=== PATIENT | male | born 1970 | race Caucasian/White ===

== ENCOUNTER 2020-12-08 14:17 | Inpatient (IN) | payer OTHER ==
[~2020-12-08] VITALS: Ht 175.3 cm; Wt 68.0 kg
[2020-12-08 23:00] VITALS: BP 136/77
[2020-12-08] MEDS ORDERED: ACETAMINOPHEN 325 MG TABLET PO PRN (23:30)
[2020-12-08] MEDS ORDERED: DEXTROSE 50%-WATER 25 GM/50 ML SYRINGE IVP PRN (23:30)
[2020-12-09] MEDS ORDERED: PNEUMOCOCCAL VACCINE POLYVALENT 0.5 ML VIAL [PPSV23] IM. ONE (04:45)
[2020-12-09 05:55] LABS: GLUCOMETER DEV NAME(LOC) 2WR.2B; GLUCOSE,POINT OF CARE 177 MG/DL (70-110)
[2020-12-09 06:59] LABS: BASOPHILS % (AUTO) 0.4 % (0.0-2.0); EOSINOPHILS % (AUTO) 1.9 % (1.0-6.0); HEMATOCRIT 45.7 % (41-53); HEMOGLOBIN 15.4 g/dL (13.5-17.5); LYMPHOCYTES # (AUTO) 1.3 K/uL (1.0-4.8); LYMPHOCYTES % (AUTO) 17.5 % (22.0-44.0); MEAN CORPUSCULAR HEMOGLOBIN 30.2 pg (26.0-34.0); MEAN CORPUSCULAR HGB CONC 33.8 G/dL (31.0-37.0); MEAN CORPUSCULAR VOLUME 89 fL (80-100); MONOCYTES # (AUTO) 0.5 K/uL (0.1-1.0); NEUTROPHILS # (AUTO) 5.6 K/uL (1.8-7.7); NEUTROPHILS % (AUTO) 73.2 % (40.0-70.0); PLATELET COUNT (AUTO) 255 K/uL (150-450); RED BLOOD CELL COUNT(AUTO) 5.12 MIL/uL (4.50-5.90); RED CELL DISTRIBUTION WIDTH 13.9 % (11.5-14.5)
[2020-12-09 07:17] LABS: ALANINE AMINOTRANSFERASE 53 U/L (12-78); ALBUMIN 3.1 g/dL (3.4-5.0); ALKALINE PHOSPHATASE 123 U/L (46-116); ANION GAP 8 mmol/L (8-16); ASPARTATE AMINOTRANSFERASE 19 U/L (15-37); BILIRUBIN,TOTAL 0.6 mg/dL (0.1-1.0); CALCIUM, TOTAL 9.1 mg/dL (8.8-10.5); CARBON DIOXIDE 28 mmol/L (22-29); CHLORIDE 104 mmol/L (98-107); CREATININE 0.68 mg/dL (0.60-1.30); GLOMERULAR FILTR. RATE CALC > 60 mL/min (>60); GLUCOSE,RANDOM 179 mg/dL (70-110); POTASSIUM 4.2 mmol/L (3.5-5.1); SODIUM SERUM 140 mmol/L (136-145); TOTAL PROTEIN, SERUM 6.6 g/dL (6.4-8.2); UREA NITROGEN, BLOOD 9 mg/dL (7-18)
[2020-12-09] MEDS: INSULIN LISPRO 100 UNITS/ML SQ SCH ×3 (08:02→18:00)
[2020-12-09] MEDS: INSULIN LISPRO 100 UNITS/ML SQ PRN ×3 (08:03→18:00)
[2020-12-09] MEDS: ETHYL ALCOHOL 62% ANTISEPTIC NASAL INHALANT 0.6 ML AMPUL NASAL SCH ×2 (08:05→20:42)
[2020-12-09] MEDS: DOCUSATE SODIUM 100 MG CAPSULE PO SCH ×2 (08:05→20:42)
[2020-12-09] MEDS: ASPIRIN 81 MG CHEWABLE TABLET PO SCH (08:05)
[2020-12-09] MEDS: CLOPIDOGREL BISULFATE 75 MG TABLET PO SCH (08:05)
[2020-12-09] MEDS: ENOXAPARIN SODIUM 40 MG/0.4 ML PF SYRINGE SQ SCH (08:06)
[2020-12-09 09:43] VITALS: BP 133/75
[2020-12-09 13:47] LABS: GLUCOMETER DEV NAME(LOC) 2WR.1C; GLUCOSE,POINT OF CARE 149 MG/DL (70-110)
[2020-12-09 15:59] VITALS: BP 127/56
[2020-12-09 19:32] LABS: GLUCOMETER DEV NAME(LOC) 2WR.2B; GLUCOSE,POINT OF CARE 194 MG/DL (70-110)
[2020-12-09] MEDS: ATORVASTATIN CALCIUM 40 MG TABLET PO SCH (20:42)
[2020-12-09] MEDS: SENNA 187 MG TABLET PO SCH (20:42)
[2020-12-09] MEDS: INSULIN GLARGINE,HUM.REC.ANLOG 100 UNITS/ML SQ SCH (20:53)
[2020-12-09 21:50] LABS: GLUCOMETER DEV NAME(LOC) 2WR.2B; GLUCOSE,POINT OF CARE 128 MG/DL (70-110)
[2020-12-10 01:20] VITALS: BP 138/98
[2020-12-10] MEDS: ASPIRIN 81 MG CHEWABLE TABLET PO SCH (07:33)
[2020-12-10] MEDS: ENOXAPARIN SODIUM 40 MG/0.4 ML PF SYRINGE SQ SCH (07:33)
[2020-12-10] MEDS: DOCUSATE SODIUM 100 MG CAPSULE PO SCH ×2 (07:33→21:23)
[2020-12-10] MEDS: INSULIN LISPRO 100 UNITS/ML SQ SCH ×3 (07:35→17:59)
[2020-12-10] MEDS: ETHYL ALCOHOL 62% ANTISEPTIC NASAL INHALANT 0.6 ML AMPUL NASAL SCH ×2 (08:05→21:22)
[2020-12-10] MEDS: CLOPIDOGREL BISULFATE 75 MG TABLET PO SCH (08:06)
[2020-12-10 09:00] VITALS: BP 131/83
[2020-12-10] MEDS: INSULIN LISPRO 100 UNITS/ML SQ PRN (12:27)
[2020-12-10 15:25] VITALS: BP 137/81
[2020-12-10] MEDS: TAMSULOSIN HCL 0.4 MG CAPSULE PO SCH (16:35)
[2020-12-10] MEDS: MetFORMIN HCL 500 MG TABLET PO SCH (16:35)
[2020-12-10 16:37] LABS: GLUCOMETER DEV NAME(LOC) 2WR.2B; GLUCOSE,POINT OF CARE 141 MG/DL (70-110)
[2020-12-10 19:57] LABS: GLUCOMETER DEV NAME(LOC) 2WR.2B; GLUCOSE,POINT OF CARE 96 MG/DL (70-110)
[2020-12-10] MEDS ORDERED: TAMSULOSIN HCL 0.4 MG CAPSULE PO SCH (21:00)
[2020-12-10 21:19] LABS: GLUCOMETER DEV NAME(LOC) 2WR.1C; GLUCOSE,POINT OF CARE 175 MG/DL (70-110)
[2020-12-10] MEDS: ATORVASTATIN CALCIUM 40 MG TABLET PO SCH (21:23)
[2020-12-10] MEDS: SENNA 187 MG TABLET PO SCH (21:23)
[2020-12-10] MEDS: INSULIN GLARGINE,HUM.REC.ANLOG 100 UNITS/ML SQ SCH (21:31)
[2020-12-10 23:23] VITALS: BP 143/88
[2020-12-11 03:10] LABS: GLUCOMETER DEV NAME(LOC) 2WR.2B; GLUCOSE,POINT OF CARE 132 MG/DL (70-110)
[2020-12-11 05:45] LABS: GLUCOMETER DEV NAME(LOC) 2WR.1C; GLUCOSE,POINT OF CARE 163 MG/DL (70-110)
[2020-12-11] MEDS: CLOPIDOGREL BISULFATE 75 MG TABLET PO SCH (08:08)
[2020-12-11] MEDS: ASPIRIN 81 MG CHEWABLE TABLET PO SCH (08:09)
[2020-12-11] MEDS: ETHYL ALCOHOL 62% ANTISEPTIC NASAL INHALANT 0.6 ML AMPUL NASAL SCH ×2 (08:09→20:52)
[2020-12-11] MEDS: ENOXAPARIN SODIUM 40 MG/0.4 ML PF SYRINGE SQ SCH (08:10)
[2020-12-11] MEDS: TAMSULOSIN HCL 0.4 MG CAPSULE PO SCH (08:10)
[2020-12-11] MEDS: MetFORMIN HCL 500 MG TABLET PO SCH ×2 (08:12→18:11)
[2020-12-11] MEDS: MUPIROCIN CALCIUM 2% 22 GM OINTMENT NASAL SCH ×2 (08:13→20:53)
[2020-12-11] MEDS: INSULIN LISPRO 100 UNITS/ML SQ SCH ×3 (08:16→17:37)
[2020-12-11] MEDS: INSULIN LISPRO 100 UNITS/ML SQ PRN ×2 (08:17→20:59)
[2020-12-11] MEDS: DOCUSATE SODIUM 100 MG CAPSULE PO SCH (08:23)
[2020-12-11 09:00] VITALS: BP 124/78
[2020-12-11] MEDS ORDERED: ETHYL ALCOHOL 62% ANTISEPTIC NASAL INHALANT 0.6 ML AMPUL NASAL SCH (09:00)
[2020-12-11 12:33] LABS: GLUCOMETER DEV NAME(LOC) 2WR.2B; GLUCOSE,POINT OF CARE 111 MG/DL (70-110)
[2020-12-11 15:55] VITALS: BP 135/88
[2020-12-11 17:16] LABS: GLUCOMETER DEV NAME(LOC) 2WR.1C; GLUCOSE,POINT OF CARE 114 MG/DL (70-110)
[2020-12-11] MEDS: ATORVASTATIN CALCIUM 40 MG TABLET PO SCH (20:51)
[2020-12-11] MEDS: SENNA 187 MG TABLET PO SCH (20:52)
[2020-12-11] MEDS: DOCUSATE SODIUM 250 MG CAPSULE PO SCH (20:52)
[2020-12-11] MEDS: INSULIN GLARGINE,HUM.REC.ANLOG 100 UNITS/ML SQ SCH (20:54)
[2020-12-11 22:37] LABS: GLUCOMETER DEV NAME(LOC) 2WR.1C; GLUCOSE,POINT OF CARE 191 MG/DL (70-110)
[2020-12-11 23:53] VITALS: BP 123/60
[2020-12-12 05:56] LABS: GLUCOMETER DEV NAME(LOC) 2WR.2B; GLUCOSE,POINT OF CARE 172 MG/DL (70-110)
[2020-12-12] MEDS: INSULIN LISPRO 100 UNITS/ML SQ SCH ×3 (07:57→17:54)
[2020-12-12] MEDS: INSULIN LISPRO 100 UNITS/ML SQ PRN (07:58)
[2020-12-12] MEDS: ETHYL ALCOHOL 62% ANTISEPTIC NASAL INHALANT 0.6 ML AMPUL NASAL SCH ×2 (08:00→21:12)
[2020-12-12] MEDS: DOCUSATE SODIUM 250 MG CAPSULE PO SCH ×2 (08:00→21:12)
[2020-12-12] MEDS: TAMSULOSIN HCL 0.4 MG CAPSULE PO SCH (08:00)
[2020-12-12] MEDS: MetFORMIN HCL 500 MG TABLET PO SCH ×2 (08:01→17:53)
[2020-12-12] MEDS: ASPIRIN 81 MG CHEWABLE TABLET PO SCH (08:01)
[2020-12-12] MEDS: CLOPIDOGREL BISULFATE 75 MG TABLET PO SCH (08:02)
[2020-12-12] MEDS: ENOXAPARIN SODIUM 40 MG/0.4 ML PF SYRINGE SQ SCH (08:04)
[2020-12-12] MEDS: MUPIROCIN CALCIUM 2% 22 GM OINTMENT NASAL SCH ×2 (08:07→21:17)
[2020-12-12 09:00] VITALS: BP 128/74
[2020-12-12 16:17] LABS: GLUCOMETER DEV NAME(LOC) 2WR.1C; GLUCOSE,POINT OF CARE 123 MG/DL (70-110)
[2020-12-12 17:54] LABS: GLUCOMETER DEV NAME(LOC) 2WR.1C; GLUCOSE,POINT OF CARE 126 MG/DL (70-110)
[2020-12-12] MEDS: ATORVASTATIN CALCIUM 40 MG TABLET PO SCH (21:12)
[2020-12-12] MEDS: SENNA 187 MG TABLET PO SCH (21:12)
[2020-12-12] MEDS: INSULIN GLARGINE,HUM.REC.ANLOG 100 UNITS/ML SQ SCH (21:14)
[2020-12-12 21:49] LABS: GLUCOMETER DEV NAME(LOC) 2WR.2B; GLUCOSE,POINT OF CARE 105 MG/DL (70-110)
[2020-12-13 02:33] VITALS: BP 133/85
[2020-12-13] MEDS ORDERED: ATOR40TA28 PO (03:37)
[2020-12-13] MEDS ORDERED: METF-960 PO (03:37)
[2020-12-13] MEDS ORDERED: TAMS-13 PO (03:37)
[2020-12-13] MEDS ORDERED: INSU100V SQ (03:37)
[2020-12-13] MEDS ORDERED: ASPI-1450 PO (03:37)
[2020-12-13] MEDS ORDERED: CLOP75TA60 PO (03:37)
[2020-12-13] MEDS ORDERED: INSLAN SQ (03:37)
[2020-12-13 05:54] LABS: GLUCOMETER DEV NAME(LOC) 2WR.2B; GLUCOSE,POINT OF CARE 152 MG/DL (70-110)
[2020-12-13 08:00] VITALS: BP 124/77
[2020-12-13] MEDS: INSULIN LISPRO 100 UNITS/ML SQ SCH ×3 (08:01→17:48)
[2020-12-13] MEDS: MetFORMIN HCL 500 MG TABLET PO SCH ×2 (08:02→17:46)
[2020-12-13] MEDS: ASPIRIN 81 MG CHEWABLE TABLET PO SCH (08:02)
[2020-12-13] MEDS: DOCUSATE SODIUM 250 MG CAPSULE PO SCH ×2 (08:02→20:26)
[2020-12-13] MEDS: ENOXAPARIN SODIUM 40 MG/0.4 ML PF SYRINGE SQ SCH (08:03)
[2020-12-13] MEDS: ETHYL ALCOHOL 62% ANTISEPTIC NASAL INHALANT 0.6 ML AMPUL NASAL SCH ×2 (08:03→20:26)
[2020-12-13] MEDS: MUPIROCIN CALCIUM 2% 22 GM OINTMENT NASAL SCH ×2 (08:03→20:25)
[2020-12-13] MEDS: CLOPIDOGREL BISULFATE 75 MG TABLET PO SCH (08:03)
[2020-12-13] MEDS: TAMSULOSIN HCL 0.4 MG CAPSULE PO SCH (08:03)
[2020-12-13 12:56] LABS: GLUCOMETER DEV NAME(LOC) 2WR.1C; GLUCOSE,POINT OF CARE 105 MG/DL (70-110)
[2020-12-13 16:07] VITALS: BP 128/79
[2020-12-13] MEDS: SENNA 187 MG TABLET PO SCH (20:26)
[2020-12-13] MEDS: ATORVASTATIN CALCIUM 40 MG TABLET PO SCH (20:26)
[2020-12-13] MEDS: INSULIN LISPRO 100 UNITS/ML SQ PRN (20:34)
[2020-12-13] MEDS: INSULIN GLARGINE,HUM.REC.ANLOG 100 UNITS/ML SQ SCH (20:35)
[2020-12-13 23:52] VITALS: BP 131/71
[2020-12-14 05:21] LABS: GLUCOMETER DEV NAME(LOC) 2WR.1C; GLUCOSE,POINT OF CARE 108 MG/DL (70-110)
[2020-12-14 05:21] LABS: GLUCOMETER DEV NAME(LOC) 2WR.1C; GLUCOSE,POINT OF CARE 150 MG/DL (70-110)
[2020-12-14 06:06] LABS: GLUCOMETER DEV NAME(LOC) 2WR.2B; GLUCOSE,POINT OF CARE 159 MG/DL (70-110)
[2020-12-14] MEDS: MetFORMIN HCL 500 MG TABLET PO SCH ×2 (07:47→17:32)
[2020-12-14] MEDS: INSULIN LISPRO 100 UNITS/ML SQ SCH ×3 (07:50→17:30)
[2020-12-14] MEDS: INSULIN LISPRO 100 UNITS/ML SQ PRN (07:51)
[2020-12-14] MEDS: ETHYL ALCOHOL 62% ANTISEPTIC NASAL INHALANT 0.6 ML AMPUL NASAL SCH ×2 (07:52→20:33)
[2020-12-14] MEDS: TAMSULOSIN HCL 0.4 MG CAPSULE PO SCH (07:52)
[2020-12-14] MEDS: CLOPIDOGREL BISULFATE 75 MG TABLET PO SCH (07:52)
[2020-12-14] MEDS: ASPIRIN 81 MG CHEWABLE TABLET PO SCH (07:52)
[2020-12-14] MEDS: ENOXAPARIN SODIUM 40 MG/0.4 ML PF SYRINGE SQ SCH (07:53)
[2020-12-14] MEDS: DOCUSATE SODIUM 250 MG CAPSULE PO SCH ×2 (07:54→20:34)
[2020-12-14] MEDS: MUPIROCIN CALCIUM 2% 22 GM OINTMENT NASAL SCH ×2 (07:55→20:33)
[2020-12-14 09:20] VITALS: BP 121/79
[2020-12-14 14:35] LABS: GLUCOMETER DEV NAME(LOC) 2WR.2B; GLUCOSE,POINT OF CARE 127 MG/DL (70-110)
[2020-12-14 16:00] VITALS: BP 129/77
[2020-12-14 20:13] LABS: GLUCOMETER DEV NAME(LOC) 2WR.1C; GLUCOSE,POINT OF CARE 104 MG/DL (70-110)
[2020-12-14] MEDS: SENNA 187 MG TABLET PO SCH (20:34)
[2020-12-14] MEDS: ATORVASTATIN CALCIUM 40 MG TABLET PO SCH (20:34)
[2020-12-14] MEDS: INSULIN GLARGINE,HUM.REC.ANLOG 100 UNITS/ML SQ SCH (20:35)
[2020-12-14 21:58] LABS: GLUCOMETER DEV NAME(LOC) 2WR.2B; GLUCOSE,POINT OF CARE 114 MG/DL (70-110)
[2020-12-14 23:53] VITALS: BP 130/74
[2020-12-15 05:57] LABS: GLUCOMETER DEV NAME(LOC) 2WR.1C; GLUCOSE,POINT OF CARE 148 MG/DL (70-110)
[2020-12-15 07:11] VITALS: BP 114/77
[2020-12-15] MEDS: ETHYL ALCOHOL 62% ANTISEPTIC NASAL INHALANT 0.6 ML AMPUL NASAL SCH (08:09)
[2020-12-15] MEDS: DOCUSATE SODIUM 250 MG CAPSULE PO SCH (08:09)
[2020-12-15] MEDS: TAMSULOSIN HCL 0.4 MG CAPSULE PO SCH (08:10)
[2020-12-15] MEDS: ENOXAPARIN SODIUM 40 MG/0.4 ML PF SYRINGE SQ SCH (08:10)
[2020-12-15] MEDS: ASPIRIN 81 MG CHEWABLE TABLET PO SCH (08:10)
[2020-12-15] MEDS: MetFORMIN HCL 500 MG TABLET PO SCH (08:10)
[2020-12-15] MEDS: CLOPIDOGREL BISULFATE 75 MG TABLET PO SCH (08:10)
[2020-12-15] MEDS: INSULIN LISPRO 100 UNITS/ML SQ SCH ×2 (08:13→12:50)
[2020-12-15] MEDS: INSULIN LISPRO 100 UNITS/ML SQ PRN (08:14)
[2020-12-15] MEDS: MUPIROCIN CALCIUM 2% 22 GM OINTMENT NASAL SCH (08:16)
[2020-12-15] MEDS ORDERED: DOCU-350 PO (12:34)
[2020-12-15] MEDS ORDERED: INSU100V SQ (12:34)
[2020-12-15 13:31] LABS: GLUCOMETER DEV NAME(LOC) 2WR.2B; GLUCOSE,POINT OF CARE 121 MG/DL (70-110)
== END 2020-12-15 14:40 | disposition home or self-care (01) | DRG 65 ==
LOC: 2WR 22:44
PROVIDERS: ADMIT Physical Medicine & Rehabilitation; ATTEND Physical Medicine & Rehabilitation
DX: I63.9 Cerebral infarction, unspecified (principal); G81.91 Hemiplegia, unspecified affecting right dominant side; G81.94 Hemiplegia, unspecified affecting left nondominant side; R47.1 Dysarthria and anarthria; E78.5 Hyperlipidemia, unspecified; K59.00 Constipation, unspecified; I10 Essential (primary) hypertension; R47.81 Slurred speech; R29.810 Facial weakness
CPT/HCPCS: 80053; 82962; 85025; 87081; 90732; 92507; 92523; 97112; 97116; 97150; 97163; 97166; 97530; 97535; 99368; J1650; J1815

== ENCOUNTER 2022-03-03 09:56 | Emergency (ER) | payer MEDICAID, OTHER ==
[~2022-03-03] VITALS: Ht 175.3 cm; Wt 70.5 kg
[~2022-03-03 09:56] MED LIST: ASPI-1450 PO; ATOR40TA28 PO; CLOP75TA60 PO; DOCU-350 PO; INSLAN SQ; INSU100V SQ; METF-1211 PO; TAMS-13 PO
[2022-03-03 12:17] LABS: BASOPHILS % (AUTO) 0.6 % (0.0-2.0); HEMOGLOBIN 16.9 g/dL (13.5-17.5); MEAN CORPUSCULAR HGB CONC 32.9 G/dL (31.0-37.0); MONOCYTES # (AUTO) 0.8 K/uL (0.1-1.0); RED CELL DISTRIBUTION WIDTH 14.2 % (11.5-14.5)
[2022-03-03 12:30] VITALS: BP 142/94
[2022-03-03 12:31] LABS: COVID AG,FIA SOURCE NASOPHARYNGEAL
[2022-03-03 12:32] LABS: EOSINOPHILS % (AUTO) 0.6 % (1.0-6.0); HEMATOCRIT 51.4 % (41-53); LYMPHOCYTES # (AUTO) 0.9 K/uL (1.0-4.8); LYMPHOCYTES % (AUTO) 13.9 % (22.0-44.0); MEAN CORPUSCULAR HEMOGLOBIN 30.1 pg (26.0-34.0); MEAN CORPUSCULAR VOLUME 92 fL (80-100); MONOCYTES % (AUTO) 12.7 % (2.0-9.0); NEUTROPHILS # (AUTO) 4.6 K/uL (1.8-7.7); NEUTROPHILS % (AUTO) 72.2 % (40.0-70.0); PLATELET COUNT (AUTO) 230 K/uL (150-450); RED BLOOD CELL COUNT(AUTO) 5.61 MIL/uL (4.50-5.90)
[2022-03-03 12:38] LABS: ANION GAP 6 mmol/L (8-16); CALCIUM, TOTAL 9.4 mg/dL (8.8-10.5); CARBON DIOXIDE 28 mmol/L (22-29); CHLORIDE 102 mmol/L (98-107); GLOMERULAR FILTR. RATE CALC > 60 mL/min (>60); GLUCOSE,RANDOM 160 mg/dL (70-110); POTASSIUM 4.6 mmol/L (3.5-5.1); SODIUM SERUM 136 mmol/L (136-145); UREA NITROGEN, BLOOD 15 mg/dL (7-18)
[2022-03-03 12:44] LABS: ALANINE AMINOTRANSFERASE 47 U/L (12-78); ALBUMIN 3.8 g/dL (3.4-5.0); ALKALINE PHOSPHATASE 114 U/L (46-116); ASPARTATE AMINOTRANSFERASE 17 U/L (15-37); BILIRUBIN,TOTAL 0.3 mg/dL (0.1-1.0)
[2022-03-03 12:55] LABS: INFLUENZA TYPE A NEGATIVE FOR TYPE A (NEGATIVE); INFLUENZA TYPE B NEGATIVE FOR TYPE B (NEGATIVE)
[2022-03-03] MEDS ORDERED: IBUP-1554 PO (13:35)
[2022-03-03] MEDS ORDERED: ACET-66 PO (13:35)
[2022-03-03] MEDS ORDERED: GUAIFDM PO (13:35)
[2022-03-03] MEDS ORDERED: NIRM1TAB PO (13:35)
== END 2022-03-03 14:05 | disposition home or self-care (01) ==
LOC: EMS 10:04
DX: U07.1 COVID-19 (principal); J06.9 Acute upper respiratory infection, unspecified; F15.10 Other stimulant abuse, uncomplicated; F20.9 Schizophrenia, unspecified; Z13.30 Encounter for screening examination for mental health and behavioral disorders, unspecified; Z20.822 Contact with and (suspected) exposure to COVID-19
CPT/HCPCS: 99285; 87426; 80053; 82962; 84484; 85025; 87804; 36415; G0480